=== PATIENT | female | born 1955 | race Caucasian/White ===

== ENCOUNTER → 2017-11-03 | Outpatient (CLI) | payer OTHER ==
--- NOTE | 2017-11-03 09:28 | CT ---
EXAMINATION TYPE: CT abdomen wo/w con DATE OF EXAM: 11/03/2017 COMPARISON: NONE HISTORY: Liver lesion CT DLP: 1460 mGycm Automated exposure control for dose reduction was used. TECHNIQUE: Helical acquisition of images was performed from the lung bases through the top of iliac crest to include entire abdomen. CONTRAST: Performed without Oral Contrast and without and with IV Contrast, patient injected with 100 ml mL of Isovue 300. FINDINGS: LUNG BASES: No significant abnormality is appreciated. LIVER/GB: There are 2 hypodense foci within the liver on precontrast imaging, one is within the media l segment of the left lobe and the larger of the 2 present in the lateral aspect of the right lobe on axial images numbered 28 through 31. On dynamic postcontrast imaging, there is centripetal enhancem ent is lesions. Gallbladder is normal PANCREAS: No significant abnormality is seen. SPLEEN: No significant abnormality is seen. ADRENALS: No significant abnormality is seen. KIDNEYS: No significant abnormality is seen. BOWEL: No significant abnormality is seen. LYMPH NODES: No significant abnormality is appreciated. OSSEOUS STRUCTURES: No significant abnormality is seen. FREE AIR: No Free Air visible ASCITES: None visible. RETROPERITONEAL ADENOPATHY: No Retroperitoneal Adenopathy visible. OTHER: Aorta shows normal caliber, there may be spondylolysis present at L5 with the listhesis. Possi ble small hiatal hernia. IMPRESSION: LIVER LESIONS LIKELY REPRESENT HEMANGIOMAS, FOLLOW-UP COULD BE PERFORMED TO ASSESS FOR STABILITY.
== END | disposition home or self-care (01) ==
LOC: RADCTMAIN 07:58
PROVIDERS: ATTEND Family Medicine
DX: K76.9 Liver disease, unspecified (principal)
CPT/HCPCS: 74170; Q9967

== ENCOUNTER 2019-12-30 01:20 | Emergency (ER) | payer BC, OTHER ==
[2019-12-30] MEDS ORDERED: ONDANSETRON 4 MG/2 ML VIAL IVP STA (01:38)
[2019-12-30] MEDS ORDERED: MORPHINE SULFATE 4 MG/ML SYRINGE IVP STA (01:38)
--- NOTE | 2019-12-30 02:10 | XR ---
EXAMINATION TYPE: XR ribs LT w pa chest xray DATE OF EXAM: 12/30/2019 COMPARISON: NONE HISTORY: Chest and left RIBS TECHNIQUE: 5 views FINDINGS: Heart and mediastinum are normal. Lungs are clear. Diaphragm is normal. I see no pleural ef fusion or pneumothorax. There are fractures of the lateral left fourth and fifth ribs. There is minim al displacement. There is no evidence of focal bone destruction. IMPRESSION: Acute fractures of the lateral left fourth and fifth ribs. No cardiopulmonary disease.
--- NOTE | 2019-12-30 02:16 | CT ---
EXAMINATION TYPE: CT brain sue wo con DATE OF EXAM: 12/30/2019 COMPARISON: None HISTORY: Fall CT DLP: 1283.8 mGycm Automated exposure control for dose reduction was used. CT brain and cervical spine without contrast. There is mild cerebral atrophy. There is no mass effect nor midline shift. There is no sign of intrac ranial hemorrhage. There is a 12 mm probably calcified mass in the left posterior fossa adjacent to t he lateral left cerebellar tentorium that is probably a meningioma. The ventricles appear normal. The re is no hydrocephalus. The calvarium is intact. There is incomplete pneumatization of the mastoid si nuses. The skull base is intact. Cervical vertebra have fairly normal alignment. There is spurring of the endplates from C4 to T1. The re is uncovertebral spurring and right side neural foraminal impingement at C5-6. The facet joints ar e intact. There is some mild facet arthropathy in the lower cervical spine at C7-T1. IMPRESSION: Mild spondylotic changes in the mid and lower cervical spine. No fracture. No acute intracranial abnormality. Mild atrophy. Calcified extra-axial mass on the left side probably a meningioma of the cerebellar tentorium.
--- NOTE | 2019-12-30 02:32 | ED ---
Fall HPI - General Chief Complaint: Fall Stated Complaint: Fall, rib pain Time Seen by Provider: 12/30/19 01:32 Source: patient, family Mode of arrival: wheelchair - History of Present Illness Initial Comments: 64-year-old febrile presents today for chief complaint of left rib pain after fall patient states she fell approximately 3 feet when she tripped over the at the porch while tending to her tomato plants. Patient states it was dark and she cannot see. Patient states that she has left mid rib pain near her boot. Patient states she does not believe she lost consciousness but did hit her head denies anticoagulation therapy denies new neck pain states she has chronic right shoulder pain. Patient denies any shortness of breath she states she really does not have significant pain with deep breath. Patient denies any abdominal pain, new UE pain, LE pain, or back pain. Patient appears in no distress. - Related Data Previous Rx's Medication Instructions Recorded HYDROcodone/APAP 5-325MG [Milton 1 tab PO Q4HR PRN 3 Days #18 tab 12/30/19 5-325] Allergies Allergy/AdvReac Type Severity Reaction Status Date / Time Tetracyclines Allergy Nausea & Verified 12/30/19 01:32 Vomiting codeine AdvReac Nausea & Verified 12/30/19 01:30 Vomiting Review of Systems ROS Statement: Those systems with pertinent positive or pertinent negative responses have been documented in the HPI. ROS Other: All systems not noted in ROS Statement are negative. Past Medical History Past Medical History: Asthma History of Any Multi-Drug Resistant Organisms: None Reported Past Surgical History: Hysterectomy Past Psychological History: Anxiety, Depression Smoking Status: Never smoker Past Alcohol Use History: Occasional Past Drug Use History: None Reported General Exam - General Exam Comments Initial Comments: General: The patient is awake and alert, in no distress Eye: +3 mm pupils are equal, round and reactive to light, extra-ocular movements are intact. No nystagmus. There is normal conjunctiva bilaterally. No signs of icterus. Ears, nose, mouth and throat: There are moist mucous membranes and no oral lesions. No raccoon no grijalva sign. Neck: The neck is supple, there is no tenderness or JVD. No m idline cervical pain, full ROM of the cervical spine. Cardiovascular: There is a regular rate and rhythm. No murmur, rub or gallop is appreciated. Respiratory: No bruising but pain to palpation lateral mid ribs. Lungs are clear to auscultation, respirations are non-labored, breath sounds are equal. No wheezes, stridor, rales, or rhonchi. Gastrointestinal: Soft, non-distended, non-tender abdomen without masses or organomegaly noted. There is no rebound or guarding present. Musculoskeletal: Normal ROM, no tenderness. Strength 5/5. Sensation intact. Radial pulses equal bilaterally 2+. Neurological: A&O x 3. CN II-XII intact, There are no obvious motor or sensory deficits. Coordination appears grossly intact. Speech is normal. Skin: Skin is warm and dry and no rashes or lesions are noted. No scalp hematomas Psychiatric: Cooperative, appropriate mood & affect, normal judgment. Course Vital Signs 12/30/19 01:24 Temperature 98.2 F Pulse Rate 92 Respiratory 20 Rate Blood Pressure 129/71 O2 Sat by Pulse 99 Oximetry Medical Decision Making - Medical Decision Making 64yo female presenting for cc of fall. 3 ft onto left side. Rib pain. 4th and 5th nondisplaced fractures. Denies SOB. oxygenating well. No pneumothorax. Patient CT brain c-spine (-) obtained as patient states she did have a few cocktails. No focal neurological deficits. Does not appear acutely intoxicated. Patient will be discharged with PCP f/u, incentive spirometer, is to return for SOB or increasing pain. Patient told me she takes xanax, I discussed importance of not drinking on xanax nor taking norco with xanax or alcohol. she understands risk of respiratory supression if these medications are combined. Patient was discharged appearing well agreeable to care plan, f/u and return parameters. bedside who also verbalizing understanding. Disposition Clinical Impression: Fall, Rib pain on left side, Rib fractures Disposition: HOME SELF-CARE Condition: Good Additional Instructions: Please use medication as discussed. Please follow-up with family doctor in the next 2 days, return immediately to ER for shortness of breath. Use incentive spirometer 5x a day while awake for 1 week. Please return to emergency room if the symptoms increase or worsen or for any other concerns. Prescriptions: HYDROcodone/APAP 5-325MG [Milton 5-325] 1 tab PO Q4HR PRN 3 Days #18 tab PRN Reason: Severe Pain Is patient prescribed a controlled substance at d/c from ED?: No Referrals: Dell Rivera DO [Primary Care Provider] - 1-2 days Time of Disposition: 02:31
[2019-12-30 03:00] VITALS: BP 83/54; PULSE 97; RESP 16; TEMP 98.6
== END 2019-12-30 02:55 | disposition home or self-care (01) ==
LOC: EC 01:20
DX: S22.42XA Multiple fractures of ribs, left side, initial encounter for closed fracture (principal); Z88.1 Allergy status to other antibiotic agents; Z88.6 Allergy status to analgesic agent; W01.0XXA Fall on same level from slipping, tripping and stumbling without subsequent striking against object, initial encounter; Y93.89 Activity, other specified; Y92.009 Unspecified place in unspecified non-institutional (private) residence as the place of occurrence of the external cause
CPT/HCPCS: 71101; 72125; 70450; 99284; 96374; 96375; J2270; J2405

== ENCOUNTER → 2022-02-18 | Outpatient (CLI) | payer BC ==
--- NOTE | 2022-02-18 18:18 | CT ---
EXAMINATION TYPE: CT abdomen pelvis w con CT DLP: 1191 mGycm, Automated exposure control for dose reduction was used. DATE OF EXAM: 02/18/2022 5:59 PM COMPARISON: 11/03/2017 CLINICAL INDICATION:Female, 66 years old with history of K92.1 MELENA, R10.84 ABDOMINAL PAIN; abdomin al pain, bloody stools. Hx hysterectomy TECHNIQUE: Axial CT of the abdomen and pelvis. Sagittal and coronal reformats were created on a [employer] workstation. Contrast used:70 mL of Isovue 300 with IV Contrast, Oral contrast used: with Oral Contrast FINDINGS: LOWER CHEST: Unremarkable ABDOMEN LIVER: Probable hemangiomas seen within the liver measuring similarly up to 2.7 cm. GALLBLADDER AND BILE DUCTS: Unremarkable. PANCREAS: Unremarkable. SPLEEN: Unremarkable. ADRENAL GLANDS: Unremarkable. KIDNEYS AND URETERS: No evidence of hydronephrosis or renal calculus. The ureters are unremarkable. PELVIS BLADDER: Unremarkable REPRODUCTIVE: The uterus is surgically absent. No evidence of organizing fluid collection or mass in the surgical bed. ABDOMEN & PELVIS STOMACH AND BOWEL: No evidence of bowel obstruction. No abnormal bowel wall thickening or abnormal ga stric wall thickening. PERITONEUM: No evidence of pneumoperitoneum or free fluid. VASCULATURE: No evidence of aortic aneurysm. Atherosclerosis of the arterial vasculature. MUSCULOSKELETAL: No acute osseous abnormalities, multilevel disc degeneration changes throughout the spine. There is grade I anterolisthesis of L5 on S1 with bilateral spondylolysis. Endplate sclerosis is seen at this level. LYMPH NODES: No gross evidence for lymphadenopathy. SOFT TISSUE/ABDOMINAL WALL: Tiny fat filled umbilical hernia noted. IMPRESSION: 1. No evidence for abnormal gastric or bowel wall thickening. No evidence of organizing fluid collec tion mass within the hysterectomy surgical bed. 2. No evidence for acute process 3. Hepatic probable hemangiomas as seen back in 2018. 4. Grade 1 anterolisthesis of L4 and L5 with bilateral spondylolysis.
== END | disposition home or self-care (01) ==
LOC: RADCTMAIN 15:18
PROVIDERS: ATTEND Family Medicine
DX: R10.84 Generalized abdominal pain (principal); M43.16 Spondylolisthesis, lumbar region; M47.816 Spondylosis without myelopathy or radiculopathy, lumbar region
CPT/HCPCS: 74177; Q9967

== ENCOUNTER → 2022-08-13 | Outpatient (CLI) | payer MEDICARE ==
--- NOTE | 2022-08-16 10:31 | MR ---
EXAMINATION TYPE: MR shoulder RT wo con DATE OF EXAM: 08/13/2022 COMPARISON: None HISTORY: Right shoulder pain for 5 years TECHNIQUE: Multiplanar, multisequence imaging of the right shoulder is performed without contrast. FINDINGS: Severely limited exam due to motion artifact. There is elevation of the humeral head relative to the glenoid. There is a small glenohumeral joint e ffusion with preservation of the inferior glenohumeral ligament. There is a severe hypertrophic arthropathy of the AC joint. There is impingement upon the supraspinat us tendon and muscle. The bony labrum are grossly intact by non arthrographic technique. There is atrophic change of the vi sualized rotator cuff musculature. There appears to be a complete through thickness tear of the supra spinatus tendon with retraction to the level of the AC joint. Nonvisualization of the attachment of t he infraspinatus tendon compatible with complete through thickness tear Subscapularis tendon appears intact. Bicipital tendon is situated in the bicipital groove. Suprascapular notch has a normal appearance. IMPRESSION: 1. Severely limited exam due to motion artifact demonstrates findings compatible with complete throug h thickness tear of the supraspinatus tendon. There is an near-complete through thickness tear of the infraspinatus tendon with some residual fibers seen along the posterior margin of its humeral attach ment. 2. Impingement secondary to AC joint arthropathy 3. Atrophic changes of the rotator cuff musculature.
== END | disposition home or self-care (01) ==
LOC: RADMRIMAIN 16:05
PROVIDERS: ATTEND Orthopaedic Surgery
DX: M19.011 Primary osteoarthritis, right shoulder (principal); M75.111 Incomplete rotator cuff tear or rupture of right shoulder, not specified as traumatic; M62.511 Muscle wasting and atrophy, not elsewhere classified, right shoulder; M75.41 Impingement syndrome of right shoulder

== ENCOUNTER → 2023-06-23 | Outpatient (CLI) | payer MEDICARE ==
--- NOTE | 2023-06-23 13:24 | US ---
EXAMINATION TYPE: US abdomen limited DATE OF EXAM: 06/23/2023 COMPARISON: 02/18/2022 CLINICAL INDICATION: Female, 68 years old with history of R10.11 RIGHT UPPER QUADRANT PAIN; RUQ pain after eating TECHNIQUE: Multiple sonographic images of the right upper quadrant are obtained. FINDINGS: EXAM MEASUREMENTS: Liver Length: 13.7 cm Gallbladder Wall: 0.2 cm CBD: 0.3 cm Right Kidney: 8.7x4.2x4.9 cm [employer]ULT [employer] NOTES: RUQ pain after eating x 1 month Exam limited by bowel gas Pancreas: Tail obscured by overlying bowel gas Liver: hyperechoic area again seen: 2.8x2.5x2.6cm at the right hepatic dome. Noted to measure 2.7 c m on the patient's 02/18/2022 CT. Gallbladder: wnl Evidence for sonographic Patino's sign: No CBD: wnl Right Kidney: No hydronephrosis or masses seen IMPRESSION: 1. Known echogenic mass right hepatic dome measuring 2.8 cm most compatible with a benign hepatic hem angioma. 2. No gallstones or biliary ductal dilatation.
== END | disposition home or self-care (01) ==
LOC: RADUSWWP 08:56
PROVIDERS: ATTEND Family Medicine
DX: R16.0 Hepatomegaly, not elsewhere classified (principal); R10.11 Right upper quadrant pain
CPT/HCPCS: 76705

== ENCOUNTER → 2023-07-09 | Outpatient (CLI) | payer MEDICARE ==
[2023-07-09 12:28] LABS: African American GFR (CKD) >90 (>60 ml/min/1.73 sqM); Blood Urea Nitrogen 10 mg/dL (7-17); Non-African American GFR(CKD) >90 (>60 ml/min/1.73 sqM)
--- NOTE | 2023-07-09 13:49 | CT ---
EXAMINATION TYPE: CT abdomen wo/w con DATE OF EXAM: 07/09/2023 COMPARISON: 02/18/2022. 11/03/2017. HISTORY: Hemangioma. CT DLP: 1405 mGycm Automated exposure control for dose reduction was used. TECHNIQUE: Helical acquisition of images was performed from the lung bases through the top of iliac crest to include entire abdomen. CONTRAST: Performed with Oral Contrast and with IV Contrast, patient injected with 100 mL of Isovue 300. FINDINGS: LUNG BASES: No significant abnormality is appreciated. LIVER/GB: There is a 2.7 cm lesion in the right lobe of liver and 1.9 cm lesion in the left lobe of t he liver. These lesions appear to have peripheral nodular enhancement on the delayed images, however somewhat limited and most likely hemangiomas. PANCREAS: No significant abnormality is seen. SPLEEN: No significant abnormality is seen. ADRENALS: No significant abnormality is seen. KIDNEYS: No significant abnormality is seen. BOWEL: No significant abnormality is seen. LYMPH NODES: No significant abnormality is seen. OSSEOUS STRUCTURES: No significant abnormality is seen. FREE AIR: No free air is visualized. OTHER: Moderate vascular calcification is seen throughout the abdominal aorta without evidence of ane urysmal dilation or dissection. IMPRESSION: 1. UNCHANGED LIVER LESIONS ARE FAVORED TO REPRESENT HEMANGIOMAS. THESE WERE BETTER IMAGED BACK ON [facility] OF 11/03/2017 AND THESE CAN BE CONSIDERED BENIGN WITH NO SPECIFIC FOLLOW-UP RECOMMENDED AT THIS TIME. THESE ARE UNCHANGED SINCE THAT PREVIOUS EXAMINATION. 2. No acute findings otherwise identified.
== END | disposition home or self-care (01) ==
LOC: RADCTMAIN 11:37
PROVIDERS: ATTEND Family Medicine
DX: D18.03 Hemangioma of intra-abdominal structures (principal)
CPT/HCPCS: 82565; 84520; 74170; 36415; Q9967

== ENCOUNTER → 2023-11-26 | Outpatient (CLI) | payer MEDICARE ==
--- NOTE | 2023-11-26 11:03 | XR ---
EXAMINATION TYPE: XR chest 2V DATE OF EXAM: 11/26/2023 COMPARISON: 12/30/2019 TECHNIQUE: PA and lateral views submitted. HISTORY: Congestion FINDINGS: The lungs are clear and there is no pneumothorax, pleural effusion, or focal pneumonia. Heart size normal and no overt failure. Osseous structures demonstrate hypertrophic and degenerative changes of the spine. IMPRESSION: 1. No acute process.
== END | disposition home or self-care (01) ==
LOC: RADXRMAIN 10:32
PROVIDERS: ATTEND Family Medicine
DX: R09.89 Other specified symptoms and signs involving the circulatory and respiratory systems (principal)
CPT/HCPCS: 71046

== ENCOUNTER → 2024-12-02 | Outpatient (CLI) | payer MEDICARE ==
--- NOTE | 2024-12-03 13:06 | MM ---
Reason for Exam: Screening (asymptomatic). Last mammogram was performed 3 year(s) and 4 month(s) ago. Patient History: Menarche at age 16. Postmenopausal. Risk Values: Apoorva 5 year model risk: 1.1%. NCI Lifetime model risk: 3.8%. Prior Study Comparison: 07/03/2021 Bilateral MG 3D screening mammo w/cad, Unknown. Tissue Density: There are scattered areas of fibroglandular density. Findings: Analyzed By CAD. There are bilateral areas of asymmetric density which show no persisting underlying mass or suspicious abnormality and 3-D images. There is no suspicious group of microcalcifications or other discrete abnormality in either breast. Overall Assessment: Benign, BI-RAD 2 Management: Screening Mammogram of both breasts in 1 year. Patient should continue monthly self-breast exams. A clinical breast exam by your physician is recommended on an annual basis. This exam should not preclude additional follow-up of suspicious palpable abnormalities. Note on Apoorva scores and lifetime risk: 1. A Apoorva score greater than 3% is considered moderate risk. If this is the case, consider specialist referral to assess eligibility for a risk reducing agent. 2. If overall lifetime risk for the development of breast cancer is 20% or higher, the patient may qualify for future screening with alternating mammogram and breast MRI. [facility], , 12/03/2024 1:02 PM. Electronically signed and approved by: Jordon Bah M.D. Radiologist
== END | disposition home or self-care (01) ==
LOC: RADMAMWWP 11:46
PROVIDERS: ATTEND Family Medicine
DX: Z12.31 Encounter for screening mammogram for malignant neoplasm of breast (principal); R92.323 Mammographic fibroglandular density, bilateral breasts; Z78.0 Asymptomatic menopausal state
CPT/HCPCS: 77063; 77067